=== PATIENT | female | born 1985 | race Caucasian/White ===

== ENCOUNTER 2017-09-24 14:14 | Emergency (ER) | payer BC ==
[2017-09-24] MEDS ORDERED: METOCLOPRAMIDE 5 MG/ML 2 ML VIAL IVP STA (14:40)
[2017-09-24] MEDS ORDERED: SODIUM CHLORIDE 0.9% 1,000 ML IV STA ×2 (14:40)
[2017-09-24 14:46] LABS: Glucose,Whole Blood 106 mg/dL (75-99)
--- NOTE | 2017-09-24 14:46 | ED ---
General Adult HPI - General Source: patient, family, RN notes reviewed Mode of arrival: wheelchair Limitations: no limitations <Kale Rob - Last Filed: 09/24/17 15:56> <Wilver Lee - Last Filed: 09/24/17 16:58> - General Chief complaint: Syncope Stated complaint: Syncope Time Seen by Provider: 09/24/17 14:28 - History of Present Illness Initial comments: Chief complaint and history of present illness a 32-year-old female here with chief complaint of nausea vomiting diarrhea. All the bathroom she stood up has syncopal episode. Complains discomfort to the right side of her head. Mild neck discomfort. It was unwitnessed unknown if patient had a seizure afterwards. No blood in the vomit her loose stool. The patient is a nurse. ( Kale Rob) - Related Data Home Medications Medication Instructions Recorded Confirmed Pnv No.95/Ferrous Fum/Folic AC 1 tab PO DAILY 09/24/17 09/24/17 [ Multivitamin Tablet] Sharobel 1 tab PO DAILY 09/24/17 09/24/17 Previous Rx's Medication Instructions Recorded Metoclopramide HCl [Reglan] 10 mg PO Q6HR PRN #15 tablet 09/24/17 Allergies Allergy/AdvReac Type Severity Reaction Status Date / Time No Known Allergies Allergy Verified 09/24/17 14:58 Review of Systems ROS Other: All systems not noted in ROS Statement are negative. <Kale Rob - Last Filed: 09/24/17 15:56> ROS Other: All systems not noted in ROS Statement are negative. <Wilver Lee - Last Filed: 09/24/17 16:58> ROS Statement: Those systems with pertinent positive or pertinent negative responses have been documented in the HPI. Review of systems. Patient has discomfort to the right side of her head. Mild posterior neck discomfort. Patient had a [place] collar applied upon arrival to the emergency room. Patient's denying any chest pain shortness of breath. She does have nausea vomiting and diarrhea. Patient is 9 weeks . She is breast-feeding. All systems are reviewed. Past medical problems negative for any chronic illnesses. Surgeries partial thyroidectomy. Family history includes lung and throat cancer. Patient denies smoking or drinking. No ALLERGIES. (Kale Rob) Past Medical History Past Medical History: No Reported History History of Any Multi-Drug Resistant Organisms: None Reported Additional Past Surgical History / Comment(s): partial thyroidectomy Past Psychological History: No Psychological Hx Reported Smoking Status: Never smoker Past Alcohol Use History: None Reported Past Drug Use History: None Reported <Kale Rob - Last Filed: 09/24/17 15:56> General Exam Limitations: no limitations <Kale Rob - Last Filed: 09/24/17 15:56> <Wilver Lee - Last Filed: 09/24/17 16:58> - General Exam Comments Initial Comments: General: The patient is awake and alert, in no distress, and does not appear acutely ill. Some discomfort to the right side of her head. She has syncopal episode and she bumped her head. Old[place] collar applied in the emergency room. Vital signs shows temperature 100.0 pulse 116 respiratory rate 18 pulse ox 99% room air blood pressure 136/84 Eye: Pupils are equal, round and reactive to light, extra-ocular movements are intact ; there is normal conjunctiva bilaterally. No signs of icterus. Ears, nose, mouth and throat: There are moist mucous membranes and no oral lesions. She complains of mild discomfort to the right side of her head. Neck: Mild neck discomfort. Cardiovascular: There is a regular rate and rhythm. No murmur, rub or gallop is appreciated. Respiratory: Lungs are clear to auscultation, respirations are non-labored, breath sounds are equal. No wheezes, stridor, rales, or rhonchi. Gastrointestinal: Nontender abdomen. Active bowel sounds. Recent nausea vomiting and diarrhea. No antibiotics lately. Back: No back pain. Musculoskeletal: Normal ROM, no tenderness, There is no pedal edema. There is no calf tenderness or swelling. Sensation intact. Pulses equal bilaterally 2+. Neurological: CN II-XII intact, There are no obvious motor or sensory deficits. Coordination appears grossly intact. Speech is normal. No focal or lateralizing findings Skin: Skin is warm and dry and no rashes or lesions are noted. Psychiatric: Cooperative, appropriate mood & affect, (Kale Rob) Course <Kale Rob - Last Filed: 09/24/17 15:56> <Wilver Lee - Last Filed: 09/24/17 16:58> Vital Signs 09/24/17 09/24/17 14:15 15:49 Temperature 100.0 F H Pulse Rate 116 H 104 H Respiratory 18 18 Rate Blood Pressure 136/84 131/76 O2 Sat by Pulse 99 100 Oximetry - Reevaluation(s) Reevaluation #1: 09/24/17 16:56 Patient endorsed to me by Dr. Rob with anticipation of discharge if tolerating oral intake. Patient reevaluated and resting comfortably in bed. Patient symptom-free at this time. Abdomen soft and nontender. Patient is tolerating oral intake. Patient states she does not need medication and is comfortable with discharge home. Patient will be provided prescription for Reglan and is warned of use with breast-feeding and need to supplement with bottle. (Wilver Lee) EKG Findings - EKG Comments: EKG Findings:: EKG was done and reviewed at 1427 showing normal sinus rhythm nonspecific T-wave changes QT prolonged at 366 [address]Tc [address] elevation no ectopy no ischemic changes. Rate 90 HPI was 134 QRS 84. <Kale Rob - Last Filed: 09/24/17 15:56> Medical Decision Making - Lab Data Result diagrams: 09/24/17 14:56 09/24/17 14:56 <Kale Rob - Last Filed: 09/24/17 15:56> - Lab Data Result diagrams: 09/24/17 14:56 09/24/17 14:56 <Wilver Lee - Last Filed: 09/24/17 16:58> - Medical Decision Making Medical decision making; the patient is here because of a vasovagal syncope. Also nausea vomiting diarrhea since this morning. Patient did fall and bump her head. CT of the brain and cervical spine were done and reviewed by radiologist. Entire reports were reviewed his final impression is normal CT brain. Also review of the cervical spine was done his final impression is normal CT cervical spine. As read by Dr. Schmitz. Labs show white count 9.7 hemoglobin 15 hematocrit 43. Potassium 4.5 with a BUN 16, creatinine 0.6, GFR greater than 60. Glucose 106. Troponin less than 0.012. She was hydrated declined any anti-medic, Reglan had been ordered. She wants to see how she does after hydration. Signs she states feeling better after 1 L. Final disposition will be determined by Dr. Lee. (Kale Rob) - Lab Data Lab Results 09/24/17 09/24/1717 Range/Units 14:27 14:56 14:56 WBC 9.7 (3.8-10.6) k/uL RBC 5.29 (3.80-5.40) m/uL Hgb 15.3 (11.4-16.0) gm/dL Hct 43.9 (34.0-46.0) % MCV 83.1 (80.0-100.0) fL MCH 29.0 (25.0-35.0) pg MCHC 34.9 (31.0-37.0) g/dL RDW 12.0 (11.5-15.5) % Plt Count 320 (150-450) k/uL Neutrophils % 90 % Lymphocytes % 5 % Monocytes % 3 % Eosinophils % 1 % Basophils % 0 % Neutrophils # 8.7 H (1.3-7.7) k/uL Lymphocytes # 0.5 L (1.0-4.8) k/uL Monocytes # 0.3 (0-1.0) k/uL Eosinophils # 0.1 (0-0.7) k/uL Basophils # 0.0 (0-0.2) k/uL Sodium 144 (137-145) mmol/L Potassium 4.5 (3.5-5.1) mmol/L Chloride 105 (98-107) mmol/L Carbon Dioxide 23 (22-30) mmol/L Anion Gap 16 mmol/L BUN 16 (7-17) mg/dL Creatinine 0.80 (0.52-1.04) mg/dL Est GFR (MDRD) Af Amer >60 (>60 ml/min/1.73 sqM) Est GFR (MDRD) Non-Af >60 (>60 ml/min/1.73 sqM) Glucose 98 (74-99) mg/dL POC Glucose (mg/dL) 106 H (75-99) mg/dL POC Glu [employer] ID Bowling, Amber Calcium 10.0 (8.4-10.2) mg/dL Total Bilirubin 0.9 (0.2-1.3) mg/dL AST 25 (14-36) U/L ALT 44 (9-52) U/L Alkaline Phosphatase 96 (38-126) U/L Troponin I (0.000-0.034) ng/mL Total Protein 8.8 H (6.3-8.2) g/dL Albumin 5.3 H (3.5-5.0) g/dL Urine Color Urine Appearance (Clear) Urine pH (5.0-8.0) Ur Specific [place] (1.001-1.035) Urine Protein (Negative) Urine Glucose (UA) (Negative) Urine Ketones (Negative) Urine Blood (Negative) Urine Nitrite (Negative) Urine Bilirubin (Negative) Urine Urobilinogen (<2.0) mg/dL Ur Leukocyte Esterase (Negative) 09/24/17 09/24/17 Range/Units 14:56 16:01 WBC (3.8-10.6) k/uL RBC (3.80-5.40) m/uL Hgb (11.4-16.0) gm/dL Hct (34.0-46.0) % MCV (80.0-100.0) fL MCH (25.0-35.0) pg MCHC (31.0-37.0) g/dL RDW (11.5-15.5) % Plt Count (150-450) k/uL Neutrophils % % Lymphocytes % % Monocytes % % Eosinophils % % Basophils % % Neutrophils # (1.3-7.7) k/uL Lymphocytes # (1.0-4.8) k/uL Monocytes # (0-1.0) k/uL Eosinophils # (0-0.7) k/uL Basophils # (0-0.2) k/uL Sodium (137-145) mmol/L Potassium (3.5-5.1) mmol/L Chloride (98-107) mmol/L Carbon Dioxide (22-30) mmol/L Anion Gap mmol/L BUN (7-17) mg/dL Creatinine (0.52-1.04) mg/dL Est GFR (MDRD) Af Amer (>60 ml/min/1.73 sqM) Est GFR (MDRD) Non-Af (>60 ml/min/1.73 sqM) Glucose (74-99) mg/dL POC Glucose (mg/dL) (75-99) mg/dL POC Glu [employer] ID Calcium (8.4-10.2) mg/dL Total Bilirubin (0.2-1.3) mg/dL AST (14-36) U/L ALT (9-52) U/L Alkaline Phosphatase (38-126) U/L Troponin I <0.012 (0.000-0.034) ng/mL Total Protein (6.3-8.2) g/dL Albumin (3.5-5.0) g/dL Urine Color Yellow Urine Appearance Clear (Clear) Urine pH 7.0 (5.0-8.0) Ur Specific [place] 1.021 (1.001-1.035) Urine Protein Trace H (Negative) Urine Glucose (UA) Negative (Negative) Urine Ketones Trace H (Negative) Urine Blood Negative (Negative) Urine Nitrite Negative (Negative) Urine Bilirubin Negative (Negative) Urine Urobilinogen <2.0 (<2.0) mg/dL Ur Leukocyte Esterase Negative (Negative) Disposition <Kale Rob - Last Filed: 09/24/17 15:56> Time of Disposition: 16:57 <Wilver Lee - Last Filed: 09/24/17 16:58> Clinical Impression: Vomiting Disposition: HOME SELF-CARE Condition: Stable Instructions: Acute Nausea and Vomiting (ED) Additional Instructions: Please follow-up with your doctor in the next couple days for recheck. Return for not tolerating fluids, pain, fever, passing out, worsening symptoms or other concerns. Prescriptions: Metoclopramide HCl [Reglan] 10 mg PO Q6HR PRN #15 tablet PRN Reason: Nausea Referrals: Dede Valladares MD [STAFF PHYSICIAN] - 1-2 days
[2017-09-24 15:07] LABS: Basophils % (A) 0 %; CH 29.3; CHCM 35.4; Eosinophils # (A) 0.1 k/uL (0-0.7); Eosinophils % (A) 1 %; HCT 43.9 % (34.0-46.0); HDW 2.76; HGB 15.3 gm/dL (11.4-16.0); Luc # (Auto) 0.09; Luc % (Auto) 1; Lymphocytes # (A) 0.5 k/uL (1.0-4.8); Lymphocytes % (A) 5 %; MCHC 34.9 g/dL (31.0-37.0); MCV 83.1 fL (80.0-100.0); Mean Platelet Volume 6.7; Monocytes # (A) 0.3 k/uL (0-1.0); Monocytes % (A) 3 %; Neutrophils # (A) 8.7 k/uL (1.3-7.7); Neutrophils % (A) 90 %; RBC 5.29 m/uL (3.80-5.40); WBC 9.7 k/uL (3.8-10.6)
[2017-09-24 15:25] LABS: ALT 44 U/L (9-52); AST 25 U/L (14-36); Alkaline Phosphatase 96 U/L (38-126); Anion Gap 16 mmol/L; Blood Urea Nitrogen 16 mg/dL (7-17); Carbon Dioxide 23 mmol/L (22-30); Chloride 105 mmol/L (98-107); Glucose 98 mg/dL (74-99); Non-African American GFR(MDRD) >60 (>60 ml/min/1.73 sqM); Potassium 4.5 mmol/L (3.5-5.1); Sodium 144 mmol/L (137-145); Total Bilirubin 0.9 mg/dL (0.2-1.3); Total Protein 8.8 g/dL (6.3-8.2)
--- NOTE | 2017-09-24 15:48 | CT ---
EXAMINATION TYPE: CT brain navarro pope con DATE OF EXAM: 09/24/2017 COMPARISON: NONE HISTORY: Syncopal episode hitting right side head CT DLP: 2367.7 mGycm, Automated exposure control for dose reduction was used. CONTRAST: Patient injected with mL of . CT of the brain is performed utilizing 3 mm thick sections through the posterior fossa and 3 mm thick sections through the remaining calvarium. Study is performed within 24 hours of arrival to the hospital. No abnormal hyperdensity is present to suggest an acute intracranial hemorrhage. No mass lesion is evident. No acute infarcts are evident. Ventricles and sulci are appropriate for the patient age. Paranasal sinuses and mastoid air cells within the [id number] are clear. IMPRESSIONS: 1. Normal CT brain. CT cervical spine. COMPARISON: None CT of the cervical spine is performed in the axial plane at 2 mm thick sections. Reconstructed image s in the coronal, and sagittal plane are reviewed on the computer. No acute fractures are evident. Vertebral body alignment is normal. Disc heights are preserved. Vertebral body heights are preserved. No spinal canal stenosis is evident. No neural foraminal stenosis is evident. IMPRESSIONS: 1. Normal CT cervical spine.
[2017-09-24 16:13] LABS: Appearance,Urine Clear (Clear); Bilirubin,Urine Negative (Negative); Glucose,Urine (UA) Negative (Negative); Ketones,Urine Trace (Negative); Leukocyte Esterase,Urine Negative (Negative); Nitrite,Urine Negative (Negative); Protein,Urine Trace (Negative); Specific Gravity,Urine 1.021 (1.001-1.035); UA Billing (MACRO vs. MICRO) CHEM; Urobilinogen,Urine <2.0 mg/dL (<2.0)
[2017-09-24 17:09] VITALS: BP 116/77; PULSE 110; RESP 14; TEMP 99.9
== END 2017-09-24 17:15 | disposition home or self-care (01) ==
LOC: EC 14:14
DX: R11.2 Nausea with vomiting, unspecified (principal); R55 Syncope and collapse; R19.7 Diarrhea, unspecified; Z53.20 Procedure and treatment not carried out because of patient's decision for unspecified reasons; Z79.899 Other long term (current) drug therapy
CPT/HCPCS: 36415; 70450; 72125; 80053; 81003; 84484; 85025; 93005; 96360; 96361; 99284